=== PATIENT | male | born 1965 | race Caucasian/White ===

== ENCOUNTER → 2021-05-16 | Outpatient (CLI) | payer BC ==
[~2021-05-16] MED LIST: ACET-683 PO; ASPI81TA26 PO; ATOR40TA75 PO; DEXI60CA2 PO; LEXA1TAB2 PO; RA M500C PO
== END ==
LOC: M LABSMTC 10:59
PROVIDERS: ATTEND Anesthesiology
DX: Z01.812 Encounter for preprocedural laboratory examination (principal); Z20.828 Contact with and (suspected) exposure to other viral communicable diseases

== ENCOUNTER 2021-05-20 06:11 | Day surgery (SDC) | payer BC ==
[~2021-05-20] VITALS: Ht 182.9 cm; Wt 109.0 kg
[~2021-05-20 06:11] MED LIST changes: +LR 1,000 ML IV ONE
[2021-05-20] MEDS ORDERED: BUPIVACAINE HCL 0.5% 10ML VIAL As Ordered ONE (07:07)
[2021-05-20] MEDS ORDERED: dexameTHASONE 4 MG/ML 1ML VIAL (J1100 PER 1MG) As Ordered ONE (07:07)
[2021-05-20] MEDS ORDERED: NEOSPORIN GU IRRIG 20 ML VIAL As Ordered ONE (07:08)
[2021-05-20] MEDS ORDERED: LIDOCAINE 2% MDV 20ML VIAL As Ordered ONE (07:08)
[2021-05-20] MEDS ORDERED: fentaNYL 100 MCG/2 ML INJECTION (J3010) As Ordered ONE (07:17)
[2021-05-20] MEDS ORDERED: ONDANSETRON 4MG/2ML VIAL As Ordered ONE (07:17)
[2021-05-20] MEDS ORDERED: MIDAZOLAM INJ 2MG/2ML VIAL (J2250 PER 1MG) As Ordered ONE (07:17)
[2021-05-20] MEDS ORDERED: propofoL 200 MG/20 ML VIAL As Ordered ONE ×2 (07:17→08:01)
[2021-05-20] MEDS ORDERED: LIDOCAINE 2% 100MG/5ML SDV (FOR ANES.) As Ordered ONE (07:17)
[2021-05-20] MEDS ORDERED: ceFAZolin 2 GM/D5W 50 ML IV BAG (J0690 PER 500MG) As Ordered ONE (07:22)
[2021-05-20] MEDS ORDERED: ACETAMINOPHEN 1000MG 100ML IV BTL (OFIRMEV) (J0131 PER 10MG) As Ordered ONE (07:38)
[2021-05-20] MEDS ORDERED: ceFAZolin SOD 2 GM in IV 1 EA IV ONE (08:05)
[2021-05-20] MEDS ORDERED: ePHEDrine SULFATE 25 MG/5 ML(5MG/ML) SYRINGE As Ordered ONE (08:10)
[2021-05-20] MEDS ORDERED: KETOROLAC 60MG 2ML VIAL As Ordered ONE (08:10)
--- NOTE | 2021-05-20 09:04 | RO ---
OPERATIVE NOTE DATE OF OPERATION: 05/20/2021 PREOPERATIVE DIAGNOSIS: Plantar fasciitis, left foot. POSTOPERATIVE DIAGNOSIS: Plantar fasciitis, left foot. PROCEDURE PERFORMED: Endoscopic plantar fasciotomy, left foot. HEMOSTASIS: Ankle pneumatic tourniquet at 200 mmHg for 18 minutes. SURGEON: Roe Perry DPM CRUSHER TENDER: None. ANESTHESIA: Local MAC. IRRIGATION: Dilute bacitracin, neomycin, and polymyxin B solution. DESCRIPTION OF OPERATION PROCEDURE: On 05/20/2021, this 56-year-old male was taken from his hospital room to the operating room and placed on the operating room table in the supine position. Following the induction of IV sedation, local and regional anesthesia, the left lower extremity was prepped and draped in the usual aseptic manner. Attention was directed to the patient's left foot and distal to the medial tuberosity of the calcaneus along the medial margin, a small 5-mm incision was placed in the region of the plantar fascia. Utilizing dissection scissors, dissection was carried down to the plantar fascia. Utilizing a periosteal elevator, a tunnel was created just inferior to the plantar fascia. Utilizing a tissue distender, the tunnel was enlarged and an [employer] Centerline endoscopic plantar fasciotomy blade with scope was introduced into the tunnel. Direct visualization superiorly revealed the plantar fascia and three-quarters of the plantar fascia was then resected under direct visualization down to the first muscle layer, ensuring complete transection of the medial three-quarters of the plantar fascia. The wound was then flushed with copious amounts of Bacitracin, neomycin, and polymixin B solution. The subcutaneous tissues were coapted with 4-0 Dexon in a simple interrupted type fashion. Skin incision was coapted and maintained utilizing 4-0 Prolene in a horizontal mattress fashion. Following the completion of the surgical procedure, 4 mg of dexamethasone sodium phosphate was instilled. A dry sterile dressing was applied. After release of the tourniquet, instantaneous capillary filling was noted to digits 1 through 5 of patient's left foot. The patient, having apparently tolerated the surgical procedure well, was taken from the OR to the recovery room for further monitoring by the anesthesia department. Postoperative instructions were given upon discharge.
[2021-05-20 09:07] VITALS: BP 105/59
== END 2021-05-20 09:11 | disposition home or self-care (01) ==
LOC: M SDC 06:11
PROVIDERS: ATTEND Podiatrist
DX: M72.2 Plantar fascial fibromatosis (principal); F32.9 Major depressive disorder, single episode, unspecified; G47.33 Obstructive sleep apnea (adult) (pediatric); Z79.82 Long term (current) use of aspirin; Z79.899 Other long term (current) drug therapy
CPT/HCPCS: 29893; J0131; J1100; J1885; J2250; J2405; J3010

== ENCOUNTER → 2022-06-19 | Outpatient (CLI) | payer BC ==
[~2022-06-19] MED LIST changes: -LR 1,000 ML IV ONE
== END ==
LOC: M RAD 14:46
PROVIDERS: ATTEND Internal Medicine Pulmonary Disease
DX: Z12.2 Encounter for screening for malignant neoplasm of respiratory organs (principal); F17.218 Nicotine dependence, cigarettes, with other nicotine-induced disorders

== ENCOUNTER → 2022-08-29 | Outpatient (CLI) | payer BC ==
[~2022-08-29] MED LIST changes: +METHACHOLINE KIT INH ONE
== END ==
LOC: M CARPUL 14:45
PROVIDERS: ATTEND Internal Medicine Pulmonary Disease
DX: R05.9 Cough, unspecified (principal)
CPT/HCPCS: 94070; J7674